=== PATIENT | male | born 1985 | race Caucasian/White ===

== ENCOUNTER 2019-07-22 11:10 | Emergency (ER) | payer SELFPAY ==
[~2019-07-22] VITALS: Ht 180.3 cm; Wt 77.1 kg
[2019-07-22] MEDS ORDERED: SODIUM CHLORIDE 0.9% 1,000 ML IV ONE (11:13)
[2019-07-22 11:40] VITALS: BP 142/95
[2019-07-22 11:46] LABS: Basophils # (auto) 0.1 10 ^3/uL (0-0.2); Basophils % (auto) 0.6 % (0.0-2.0); Eosinophils # (auto) 0 10 ^3/uL (0-0.8); Eosinophils % (auto) 0.1 % (0.0-7.0); Hematocrit 47.5 % (41.0-53.0); Hemoglobin 16.3 g/dL (13.5-17.5); Lymphocytes # (auto) 1.7 10 ^3/uL (0.4-5.4); Lymphocytes % (auto) 16.5 % (10.0-50.0); Mean Corpuscular Hemoglobin 29.1 pg (28.0-32.0); Mean Corpuscular Hgb Conc. 34.3 g/dL (32.0-36.0); Mean Corpuscular Volume 84.9 fL (80.0-100.0); Monocytes # (auto) 0.4 10 ^3/uL (0-1.3); Monocytes % (auto) 4.1 % (0.0-12.0); Neutrophils # (auto) 8.3 10 ^3/uL (1.6-8.6); Neutrophils % (auto) 78.7 % (37.0-80.0); Nucleated Red Blood Cells % 0.1 %; Platelet Count (auto) 266 10^3/uL (140-450); Red Cell Distribution Width 13.5 % (11.8-14.3); White Blood Cell 10.5 10^3/uL (4.4-10.8)
[2019-07-22 12:03] LABS: Urine Bacteria NONE SEEN /hpf (None Seen); Urine Blood Negative /uL (Negative); Urine Mucus FEW (None Seen); Urine WBC 1 /hpf (0 - 3)
[2019-07-22 12:09] LABS: Calcium 9.3 mg/dL (8.5-10.1); Chloride 107 mmol/L (98-107); Potassium 4.2 mmol/L (3.5-5.1); Sodium 138 mmol/L (136-145)
[2019-07-22 12:16] LABS: Alanine Aminotransferase 54 U/L (16-61); Albumin 3.8 g/dL (3.4-5.0); Alkaline Phosphatase 108 U/L (45-117); Anion Gap 7 (5-15); Aspartate Aminotransferase 30 U/L (15-37); Bilirubin, Total 0.9 mg/dL (0.2-1.0); Blood Alcohol < 3.0 mg/dL (0-5); Blood Urea Nitrogen 7 mg/dL (7-18); Carbon Dioxide 24 mmol/L (21-32); GFR African American 147 mL/min; GFR Non-African American 122 mL/min; Glucose 123 mg/dL (74-106); Total Protein 8.8 g/dL (6.4-8.2)
[2019-07-22 12:27] LABS: Opiate Scree,Urine POSITIVE (NEGATIVE); Phencyclidine Screen, Urine NEGATIVE (NEGATIVE)
[2019-07-22 12:33] LABS: Barbiturate Scree,Urine NEGATIVE (NEGATIVE)
[2019-07-22 12:34] LABS: Amphetamine Screen, Urine POSITIVE (NEGATIVE); Benzodiazephine Screen, Urine POSITIVE (NEGATIVE); Cocaine Screen, Urine NEGATIVE (NEGATIVE)
[2019-07-22 12:35] LABS: Cannabinoid Screen, Urine NEGATIVE (NEGATIVE)
== END 2019-07-22 12:24 | disposition left against medical advice (07) ==
LOC: EDBD 11:10 → ER 11:10
DX: F11.10 Opioid abuse, uncomplicated (principal)
CPT/HCPCS: 36415; 80053; 80307; 80320; 81001; 85025; 93005